=== PATIENT | female | born 1940 | race Caucasian/White ===

== ENCOUNTER 2018-02-16 13:35 | Emergency (ER) | payer MEDICARE, SELFPAY ==
[2018-02-16 13:39] VITALS: BP 159/83; PULSE 104; RESP 16; TEMP 38.3; O2SAT 100; BMI 27.2
--- NOTE | 2018-02-16 14:13 | ED_ITS ---
HPI - GI Bleed <MAUDE Sequeira - Last Filed: 02/16/18 22:05> General Chief complaint: GI Bleed Stated complaint: COUGHING UP BLOOD Time Seen by Provider: 02/16/18 14:12 Source: patient Mode of arrival: ambulatory Limitations: no limitations History of Present Illness HPI Narrative: 77-year-old female with history of breast cancer that is currently undergoing chemo treatments here for fever for the past 4-5 days along with cough. She also reports that she has been having hemoptysis during the same timeframe. She denies any shortness of breath. She does report having anterior chest pain with the cough. Positive p.o. intake. She reports that she recently had a aortic valve replacement at the beginning of this month. She also reports she has a history of sarcoidosis. She denies any abdominal pain. Positive p.o. intake. She denies any shortness of breath. Related Data Home Medications Medication Instructions Recorded Confirmed metoprolol tartrate 25 mg PO TID #0 05/19/16 02/16/18 Disabled [address]ing Permit 1 ea MISCELLANEOUS DIRECTED 02/16/18 02/16/18 anastrozole 1 tab PO DAILY 02/16/18 02/16/18 furosemide [Lasix] 40 mg PO QDAY 02/16/18 02/16/18 levothyroxine 1 tab PO DAILY 02/16/18 02/16/18 losartan 12.5 mg PO DAILY 02/16/18 02/16/18 potassium chloride 1 cap PO DAILY 02/16/18 02/16/18 rivaroxaban [Xarelto] 1 tab PO DAILY 02/16/18 02/16/18 trazodone 1 tab PO BEDTIME PRN 02/16/18 02/16/18 Previous Rx's Medication Instructions Recorded capecitabine 1,500 mg PO BID #84 tab 12/10/16 hydrocodone-acetaminophen [Vicodin] 1 tab PO Q4HP PRN #60 tab 12/10/16 codeine-guaifenesin [Virtussin AC] 10 ml PO Q4-6H PRN #118 ml 02/16/18 levofloxacin [Levaquin] 750 mg PO DAILY #7 tab 02/16/18 Allergies Allergy/AdvReac Type Severity Reaction Status Date / Time acetaminophen [From VICODIN] Allergy Intermediate ITCHING Verified 02/16/18 13: 39 hydrocodone [From VICODIN] Allergy Intermediate ITCHING Verified 02/16/18 13:39 oxycodone [OXYCODONE] Allergy Intermediate ITCHING Verified 02/16/18 13:39 latex Allergy Mild BLISTER Verified 02/16/18 13:39 STEROIDS Allergy Severe GENERAL Uncoded 08/05/17 11:59 BODY SWELLING Review of Systems <MAUDE Sequeira - Last Filed: 02/16/18 22:05> Constitutional Denies chills, Reports fever(s), Denies lethargy and Denies weakness Eyes Denies change in vision, Denies eye discharge, Denies irritation and Denies loss of vision ENT Ears, Nose, Mouth, and Throat: Denies change in voice, Denies neck pain, Denies sore throat and Denies throat swelling Cardiovascular Denies chest pain, Denies irregular heart rhythm, Denies lightheadedness, Denies palpitations and Denies orthopnea Respiratory Reports cough and Denies wheezing Comments: Hemoptysis Gastrointestinal Gastrointestinal: Denies abdominal pain, Denies change in bowel habits, Denies diarrhea, Denies nausea and Denies vomiting Genitourinary Denies hematuria, Denies flank pain, Denies urinary incontinence and Denies urinary urgency Musculoskeletal Denies neck pain Integumentary/Breasts Denies pruritus, Denies erythema, Denies rash and Denies wounds Neurologic Denies confusion, Denies loss of vision and Denies weakness Psychiatric Denies anxiety, Denies confusion, Denies depression, Denies homicidal ideation and Denies suicidal ideation Endocrine Denies palpitations Allergic/Immunologic Denies urticaria, Denies throat swelling and Denies wheezing Exam <MAUDE Sequeira - Last Filed: 02/16/18 22:05> Initial Vital Signs Initial Vital Signs: Vital Signs Temperature 101.0 F H 02/16/18 13:39 Pulse Rate 104 H 02/16/18 13:39 Respiratory Rate 16 02/16/18 13:39 Blood Pressure 159/83 H 02/16/18 13:39 Pulse Oximetry 100 02/16/18 13:39 Const General: cooperative and well developed Nutritional Appearance: well nourished Orientation: alert, awake, oriented x3 and not confused HENMT Mouth: oral mucosae normal and moist mucous membranes Eyes General: appearance normal, both eyes and all related structures Eyelids: eyelids normal Conjunctivae: conjunctivae normal Sclera: sclerae normal Pupils: PERRL EOM: EOM intact bilaterally Neck Neck: normal visual inspection, trachea midline, No lymphadenopathy, No midline deformity and No JVD Lymphatic: No lymphedema Chest Chest: normal inspection of the chest Resp Effort & Inspection: normal respiratory effort, able to speak in complete sentences, no respiratory distress and no use of accessory muscles Auscultation: clear to auscultation bilaterally, no rales, no rhonchi and no wheezes Cardio Rate: regular rate Rhythm: regular rhythm Heart Sounds: no click, no gallops, no murmurs and no rubs Pulses: normal peripheral pulses GI Inspection: non-distended Palpation: soft, no hepatosplenomegaly, No guarding, No pulsatile mass and No tender Auscultation: normal bowel sounds Skin General: no rashes or lesions noted Neuro Cognition: normal cognition Speech: speech normal Gait: normal gait Motor: muscle tone normal throughout <Sanna Fish MD - Last Filed: 02/25/18 14:01> Initial Vital Signs Initial Vital Signs: Vital Signs Temperature 101.0 F H 02/16/18 13:39 Pulse Rate 104 H 02/16/18 13:39 Respiratory Rate 16 02/16/18 13:39 Blood Pressure 159/83 H 02/16/18 13:39 Pulse Oximetry 100 02/16/18 13:39 Course <MAUDE Sequeira - Last Filed: 02/16/18 22:05> Orders Ordered: Discontinued Medications Sodium Chloride (Normal Saline 0.9%) 1,000 mls @ 150 mls/hr IV CONT ELEONORA Last Infusion: 02/16/18 17:43 Dose: 0 mls/hr Admin: 02/16/18 16:32 Dose: 150 mls/hr Vital Signs - 8 hr 02/16/18 15:20 Pulse Rate 69 Respiratory Rate 18 Blood Pressure [Left Wrist] 128/69 Pulse Oximetry 100 <Sanna Fish MD - Last Filed: 02/25/18 14:01> Orders Ordered: Discontinued Medications Sodium Chloride (Normal Saline 0.9%) 1,000 mls @ 150 mls/hr IV CONT ELEONORA Last Infusion: 02/16/18 17:43 Dose: 0 mls/hr Admin: 02/16/18 16:32 Dose: 150 mls/hr Vital Signs - 8 hr 02/16/18 15:20 Pulse Rate 69 Respiratory Rate 18 Blood Pressure [Left Wrist] 128/69 Pulse Oximetry 100 [facility] - GI Bleed <MAUDE Sequeira - Last Filed: 02/16/18 22:05> Lab Data Result diagrams: 02/16/18 15:30 02/16/18 15:30 Lab Results 02/16/18 02/16/18 02/16/18 Range/Units 15:30 15:30 15:30 WBC 5.7 (4.5-11.0) X10^3/uL RBC 3.79 L (4.0-5.2) X10^6/uL Hgb 11.4 L (12.0-16.0) g/dL Hct 33.7 L (36-46) % MCV 88.9 (80-100) fL MCH 30.1 (26-34) PG MCHC 33.9 (30-36) % RDW 14.8 (11.6-14.8) % Plt Count 117 L (150-400) X10^3/uL Neut % (Auto) 62.3 (50-75) % Lymph % (Auto) 10.5 L (25-40) % [place] % (Auto) 25.2 H (3-14) % Eos % (Auto) 1.2 L (2-4) % Baso % (Auto) 0.8 (0-2) % Neut # (Auto) 3600 (5072-9833) /uL Sodium 136 L (137-145) mmol/L Potassium 3.3 L (3.4-5.1) mmol/L Chloride 96 L (98-107) mmol/L Carbon Dioxide 30 (22-32) mmol/L BUN 12 (7-17) mg/dL Creatinine 0.80 (0.52-1.04) mg/dL Estimated GFR > 60.0 (>60) mL/min BUN/Creatinine Ratio 15.0 (6-22) Glucose 103 (80-110) mg/dL Lactate (0.7-2.1) mmol/L Calcium 9.1 (8.4-10.2) mg/dL Total Bilirubin 1.7 H (0.2-1.3) mg/dL AST 56 H (14-36) IU/L ALT 33 (9-52) IU/L Alkaline Phosphatase 118 (38-126) U/L Total Creatine Kinase 54 (30-135) U/L CK-MB (CK-2) TNP CK-MB (CK-2) Rel Index TNP Troponin I 0.016 (0.01-0.034) ng/mL Total Protein 6.9 (6.3-8.2) g/dL Albumin 3.9 (3.5-5.0) g/dL Globulin 3.0 (1.7-4.1) g/dL Albumin/Globulin Ratio 1.3 (1.0-2.8) Procalcitonin < 0.05 (<0.5) ng/mL 02/16/18 Range/Units 15:30 WBC (4.5-11.0) X10^3/uL RBC (4.0-5.2) X10^6/uL Hgb (12.0-16.0) g/dL Hct (36-46) % MCV (80-100) fL MCH (26-34) PG MCHC (30-36) % RDW (11.6-14.8) % Plt Count (150-400) X10^3/uL Neut % (Auto) (50-75) % Lymph % (Auto) (25-40) % [place] % (Auto) (3-14) % Eos % (Auto) (2-4) % Baso % (Auto) (0-2) % Neut # (Auto) (3603-5007) /uL Sodium (137-145) mmol/L Potassium (3.4-5.1) mmol/L Chloride (98-107) mmol/L Carbon Dioxide (22-32) mmol/L BUN (7-17) mg/dL Creatinine (0.52-1.04) mg/dL Estimated GFR (>60) mL/min BUN/Creatinine Ratio (6-22) Glucose (80-110) mg/dL Lactate 2.2 H (0.7-2.1) mmol/L Calcium (8.4-10.2) mg/dL Total Bilirubin (0.2-1.3) mg/dL AST (14-36) IU/L ALT (9-52) IU/L Alkaline Phosphatase (38-126) U/L Total Creatine Kinase (30-135) U/L CK-MB (CK-2) CK-MB (CK-2) Rel Index Troponin I (0.01-0.034) ng/mL Total Protein (6.3-8.2) g/dL Albumin (3.5-5.0) g/dL Globulin (1.7-4.1) g/dL Albumin/Globulin Ratio (1.0-2.8) Procalcitonin (<0.5) ng/mL Urine Dip Bedside Urine Glucose Negative Bedside Urine Bilirubin - Negative Bedside Urine Ketone - Negative Urine Specific [place] 1.015 Bedside Urine Occult Blood - Negative Bedside Urine pH 6.0 Bedside Urine Protein - Negative Bedside Urine Urobilinogen - Negative Bedside Urine Nitrite - Negative Bedside Urine Leukocytes - Negative Esterase Imaging Data CT scan - chest: Radiologist's impression: [address] [address] [address] Scan Report Signed Patient: Alvina Becerril [facility]#: [id number] : 3Acct:[id number] Age/Sex: 77 / FDate of Service: 02/16/18 Loc: ED Accession Number: [id number] Procedure: CT chest w con Ordering Provider: Todd Villa PROCEDURE: CT CHEST W CON INDICATIONS: Cough with fever and hemoptysis TECHNIQUE: After the administration of intravenous contrast, 5 mm thick sections acquired from the pulmonary apices to the posterior costophrenic angles. 7 mm thick coronal and sagittal MIP reformats were acquired. For radiation dose reduction, the following was used: automated exposure control, adjustment of mA and/or kV according to patient size. COMPARISON: [place], [place], PET/CT SKULL BASE TO MID THIGH, 12/19/2016, 10: 51. [facility], CHEST 2 VIEW, 04/19/2017, 7:03. FINDINGS: Image quality: Excellent. Lungs and pleura: No acute air space opacities superiorly but there appears to be mild alveolar scarring at the posterior lung bases bilaterally greater on the left than the right, mild in overall severity given presence on prior PET CT scanning in November of 2016. No pleural effusions or pneumothorax. Central and peripheral airways are patent and normal in caliber. Mediastinum: Heart size is normal. No pericardial effusion. No mediastinal or hilar adenopathy by size criteria. Thoracic aorta and central pulmonary arteries are normal in size. Esophagus is normal in caliber. No hiatal hernia. Aortic root stent is in place at the aortic origin. Bones and chest wall: No suspicious bony lesions. No vertebral body compression fractures. No axillary or supraclavicular adenopathy by size criteria. Thyroid gland appears normal where well visualized. Abdomen: Visualized upper abdominal solid organs appear normal. Upper abdominal bowel loops are normal in caliber. IMPRESSION: With reference to prior CT scanning obtained during PET/CT 12/19/16 there is a pattern of stranding at the posterior lung bases bilaterally similar if not equivalent to that the currently present and for this reason this is considered most likely scarring rather than acute pneumonia. A pulmonary mass or endobronchial mass is not seen. Source of reported hemoptysis is not found. Dictated by: Merrick Medina M.D. on 02/16/2018. At 17:15 Approved by: Merrick Medina M.D. on 02/16/2018 at 17:18 [facility] Narrative Medical decision making narrative: CBC was obtained with white count at 5.7 and a platelets at 117 otherwise is unremarkable. Chem panel shows mild hypokalemia and hyponatremia at 3.3 and and 136. total bili was slightly elevated 1.7. Otherwise chemistry panel was unremarkable. Procalcitonin was negative. Lactate was slightly elevated at 2.2. EKG shows sinus rhythm with no ST elevation or depression. No ectopy. Cardiac enzymes were obtained were negative. 1 set of blood cultures was obtained and is pending. Was unable to obtain 2nd of blood set as patient did not want to be stuck multiple times. Discussed case with Oncology Dr. Medina who recommends observation. Currently there are no beds available at this facility discussed transferring patient down to [place] for observation. Patient stated that she would rather go home tonight as she has dogs at home and will follow up with Oncology tomorrow or the next day. Further discussed this with Dr. Medina who recommends putting patient on Levaquin in the meantime and have her hold the Xarelto until follow-up is obtained. Patient is agreeable to this plan. For any worsening symptoms call 911 or return to the emergency room. <Sanna Fish MD - Last Filed: 02/25/18 14:01> Lab Data Lab Results 02/16/18 02/16/18 02/16/18 Range/Units 15:30 15:30 15:30 WBC 5.7 (4.5-11.0) X10^3/uL RBC 3.79 L (4.0-5.2) X10^6/uL Hgb 11.4 L (12.0-16.0) g/dL Hct 33.7 L (36-46) % MCV 88.9 (80-100) fL MCH 30.1 (26-34) PG MCHC 33.9 (30-36) % RDW 14.8 (11.6-14.8) % Plt Count 117 L (150-400) X10^3/uL Neut % (Auto) 62.3 (50-75) % Lymph % (Auto) 10.5 L (25-40) % [place] % (Auto) 25.2 H (3-14) % Eos % (Auto) 1.2 L (2-4) % Baso % (Auto) 0.8 (0-2) % Neut # (Auto) 3600 (6864-6376) /uL Sodium 136 L (137-145) mmol/L Potassium 3.3 L (3.4-5.1) mmol/L Chloride 96 L (98-107) mmol/L Carbon Dioxide 30 (22-32) mmol/L BUN 12 (7-17) mg/dL Creatinine 0.80 (0.52-1.04) mg/dL Estimated GFR > 60.0 (>60) mL/min BUN/Creatinine Ratio 15.0 (6-22) Glucose 103 (80-110) mg/dL Lactate (0.7-2.1) mmol/L Calcium 9.1 (8.4-10.2) mg/dL Total Bilirubin 1.7 H (0.2-1.3) mg/dL AST 56 H (14-36) IU/L ALT 33 (9-52) IU/L Alkaline Phosphatase 118 (38-126) U/L Total Creatine Kinase 54 (30-135) U/L CK-MB (CK-2) TNP CK-MB (CK-2) Rel Index TNP Troponin I 0.016 (0.01-0.034) ng/mL Total Protein 6.9 (6.3-8.2) g/dL Albumin 3.9 (3.5-5.0) g/dL Globulin 3.0 (1.7-4.1) g/dL Albumin/Globulin Ratio 1.3 (1.0-2.8) Procalcitonin < 0.05 (<0.5) ng/mL 02/16/18 Range/Units 15:30 WBC (4.5-11.0) X10^3/uL RBC (4.0-5.2) X10^6/uL Hgb (12.0-16.0) g/dL Hct (36-46) % MCV (80-100) fL MCH (26-34) PG MCHC (30-36) % RDW (11.6-14.8) % Plt Count (150-400) X10^3/uL Neut % (Auto) (50-75) % Lymph % (Auto) (25-40) % [place] % (Auto) (3-14) % Eos % (Auto) (2-4) % Baso % (Auto) (0-2) % Neut # (Auto) (0452-6741) /uL Sodium (137-145) mmol/L Potassium (3.4-5.1) mmol/L Chloride (98-107) mmol/L Carbon Dioxide (22-32) mmol/L BUN (7-17) mg/dL Creatinine (0.52-1.04) mg/dL Estimated GFR (>60) mL/min BUN/Creatinine Ratio (6-22) Glucose (80-110) mg/dL Lactate 2.2 H (0.7-2.1) mmol/L Calcium (8.4-10.2) mg/dL Total Bilirubin (0.2-1.3) mg/dL AST (14-36) IU/L ALT (9-52) IU/L Alkaline Phosphatase (38-126) U/L Total Creatine Kinase (30-135) U/L CK-MB (CK-2) CK-MB (CK-2) Rel Index Troponin I (0.01-0.034) ng/mL Total Protein (6.3-8.2) g/dL Albumin (3.5-5.0) g/dL Globulin (1.7-4.1) g/dL Albumin/Globulin Ratio (1.0-2.8) Procalcitonin (<0.5) ng/mL Urine Dip Bedside Urine Glucose Negative Bedside Urine Bilirubin - Negative Bedside Urine Ketone - Negative Urine Specific [place] 1.015 Bedside Urine Occult Blood - Negative Bedside Urine pH 6.0 Bedside Urine Protein - Negative Bedside Urine Urobilinogen - Negative Bedside Urine Nitrite - Negative Bedside Urine Leukocytes - Negative Esterase Discharge Plan Departure Patient Disposition: Home Clinical Impression: Cough with hemoptysis Discharge Date/Time: 02/16/18 18:25 Interventions: ED Discharge Assessment Last Done: 02/16/18 18:21 Instructions: DI for Hemoptysis Activity Restrictions/Additional Instructions: Laboratory results were unremarkable today. Chest CT was obtained and was negative for signs of infection. EKG and cardiac enzymes were obtained were negative. Discussed case with Oncology who recommended you be placed on antibiotics you have been placed on Levaquin use as directed. Oncology also recommended to hold on Xarelto until instructed to continue. Follow up with Oncology here in the next day or 2 for re-evaluation. For any worsening symptoms call 911 or return emergency room. Prescriptions: New codeine-guaifenesin [Virtussin AC] 10-100 mg/5 mL liquid 10 ml PO Q4-6H PRN (Reason: cough) Qty: 118 RF: 0 levofloxacin [Levaquin] 750 mg tablet 750 mg PO DAILY Qty: 7 RF: 0 No Action metoprolol tartrate 25 MG tablet 25 mg PO TID Qty: 0 RF: 0 hydrocodone-acetaminophen [Vicodin] 5 MG/300 MG tablet 1 tab PO Q4HP PRNQty: 60 RF: 0 capecitabine 500 MG tablet 1,500 mg PO BID Qty: 84 RF: 2 anastrozole 1 mg tablet 1 tab PO DAILY RF: 0 potassium chloride 10 mEq capsule, extended release 1 cap PO DAILY RF: 0 trazodone 50 mg tablet 1 tab PO BEDTIME PRN (Reason: Sleep) RF: 0 levothyroxine 88 mcg tablet 1 tab PO DAILY RF: 0 losartan 25 mg tablet 12.5 mg PO DAILY RF: 0 rivaroxaban [Xarelto] 20 mg tablet 1 tab PO DAILY RF: 0 furosemide [Lasix] 20 MG tablet 40 mg PO QDAY RF: 0 Disabled Parking Permit 1 ea miscellaneous DIRECTED RF: 0 Referrals: Chace Rebolledo MD [Primary Care Provider] -
--- NOTE | 2018-02-16 15:03 | DI.CT.S_ITS ---
PROCEDURE: CT CHEST W CON INDICATIONS: Cough with fever and hemoptysis TECHNIQUE: After the administration of intravenous contrast, 5 mm thick sections acquired from the pulmonary apices to the posterior costophrenic angles. 7 mm thick coronal and sagittal MIP reformats were acquired. For radiation dose reduction, the following was used: automated exposure control, adjustment of mA and/or kV according to patient size. COMPARISON: [place], [place], PET/CT SKULL BASE TO MID THIGH, 12/19/2016, 10:51. [facility], , CHEST 2 VIEW, 04/19/2017, 7:03. FINDINGS: Image quality: Excellent. Lungs and pleura: No acute air space opacities superiorly but there appears to be mild alveolar scarring at the posterior lung bases bilaterally greater on the left than the right, mild in overall severity given presence on prior PET CT scanning in November of 2016. No pleural effusions or pneumothorax. Central and peripheral airways are patent and normal in caliber. Mediastinum: Heart size is normal. No pericardial effusion. No mediastinal or hilar adenopathy by size criteria. Thoracic aorta and central pulmonary arteries are normal in size. Esophagus is normal in caliber. No hiatal hernia. Aortic root stent is in place at the aortic origin. Bones and chest wall: No suspicious bony lesions. No vertebral body compression fractures. No axillary or supraclavicular adenopathy by size criteria. Thyroid gland appears normal where well visualized. Abdomen: Visualized upper abdominal solid organs appear normal. Upper abdominal bowel loops are normal in caliber. IMPRESSION: With reference to prior CT scanning obtained during PET/CT 12/19/16 there is a pattern of stranding at the posterior lung bases bilaterally similar if not equivalent to that the currently present and for this reason this is considered most likely scarring rather than acute pneumonia. A pulmonary mass or endobronchial mass is not seen. Source of reported hemoptysis is not found. Dictated by: Merrick Medina M.D. on 02/16/2018. At 17:15 Approved by: Merrick Medina M.D. on 02/16/2018 at 17:18
[2018-02-16 15:20] VITALS: BP 128/69; PULSE 69; RESP 18; O2SAT 100
[2018-02-16 15:46] LABS: Add Manual Diff / Slide Review NO; Basophils Percent Auto 0.8 % (0-2); Eosinophils Percent Auto 1.2 % (2-4); Hematocrit 33.7 % (36-46); Hemoglobin 11.4 g/dL (12.0-16.0); Lymphocytes Percent Auto 10.5 % (25-40); Mean Corpuscular HGB Conc 33.9 % (30-36); Mean Corpuscular Hemoglobin 30.1 PG (26-34); Mean Corpuscular Volume 88.9 fL (80-100); Monocytes Percent Auto 25.2 % (3-14); Neutrophils Absolute Auto 3600 /uL (3000-5900); Neutrophils Percent Auto 62.3 % (50-75); Platelet Count 117 X10^3/uL (150-400); Red Blood Cell Count 3.79 X10^6/uL (4.0-5.2); Red Cell Distribution Width 14.8 % (11.6-14.8); White Blood Cell Count 5.7 X10^3/uL (4.5-11.0)
[2018-02-16 16:00] LABS: Lactate (Lactic Acid) 2.2 mmol/L (0.7-2.1)
[2018-02-16 16:01] LABS: Alanine Aminotransferase 33 IU/L (9-52); Albumin 3.9 g/dL (3.5-5.0); Albumin Globulin Ratio 1.3 (1.0-2.8); Alkaline Phosphatase 118 U/L (38-126); Aspartate Aminotransferase 56 IU/L (14-36); Bilirubin Total 1.7 mg/dL (0.2-1.3); Blood Urea Nitrogen 12 mg/dL (7-17); Calcium 9.1 mg/dL (8.4-10.2); Carbon Dioxide 30 mmol/L (22-32); Chloride 96 mmol/L (98-107); Creatine Kinase 54 U/L (30-135); Estimated Glomerular Filt Rate > 60.0 mL/min (>60); Glucose 103 mg/dL (80-110); HEMOLYSIS < 15 (0-50); Potassium 3.3 mmol/L (3.4-5.1); Sodium 136 mmol/L (137-145); Total Protein 6.9 g/dL (6.3-8.2)
[2018-02-16 16:13] LABS: Troponin I 0.016 ng/mL (0.01-0.034)
[2018-02-16 16:14] LABS: Procalcitonin < 0.05 ng/mL (<0.5)
[2018-02-16] MEDS: SODIUM CHLORIDE 0.9% 1,000 ML 150 ML IV (16:32)
[2018-02-16 19:40] LABS: Reflexed Lactate in 2 Hours Y
== END 2018-02-16 18:25 | disposition home or self-care (01) ==
PROVIDERS: Emergency Provider Nurse Practitioner Family; PCP Internal Medicine
DX: R04.2 Hemoptysis (principal)
CPT/HCPCS: 36591; 71260; 80053; 81003; 82550; 83605; 84145; 84484; 85025; 87040; 93005; 93010; 96360; 99283; 99285; Q9967

== ENCOUNTER 2018-05-17 11:30 | Outpatient (RCR) | payer MEDICARE, SELFPAY | END 2018-05-17 15:10 | LOC: CAR 11:30 | PROVIDERS: Family Provider Internal Medicine; PCP Internal Medicine; Visit Provider Internal Medicine | DX: Z95.2 Presence of prosthetic heart valve (principal) | CPT/HCPCS: 93798 ==

== ENCOUNTER 2018-10-24 12:23 | Emergency (ER) | payer MEDICARE, SELFPAY ==
[2018-10-24 12:44] VITALS: BP 92/75; PULSE 112; RESP 22; TEMP 37; O2SAT 97; BMI 25.8
--- NOTE | 2018-10-24 12:51 | DI.RAD.S_ITS ---
PROCEDURE: XR CHEST 1V INDICATIONS: fever , history of cancer TECHNIQUE: One view of the chest was acquired. COMPARISON: [facility], , CHEST 2 VIEW, 04/19/2017, 7:03. FINDINGS: Surgical changes and devices: There is a right-sided Port-A-Cath central line identified with the tip overlying the mid to lower superior vena cava. The cardiac valvular stent is evident. Clips are seen within the left breast, suggesting prior surgery. Previous rotator cuff repair is also evident with tendon anchors overlying the humeral head. There are postoperative changes of the lower cervical spine. Lungs and pleura: No areas of linear increased density along the mid aspect of the lateral right lung is evident. There also are increased areas of density identified within the retrocardiac region on the left. Partial obscuration of the diaphragm is present. There may be blunting of the costophrenic angles. No pneumothorax is evident. Mediastinum: Mediastinal contours appear normal. Heart size is borderline enlarged. Bones and chest wall: No suspicious bony lesions. Overlying soft tissues appear unremarkable. IMPRESSION: Linear areas of increased attenuation within the lung bases is most suggestive of atelectasis. However, superimposed pneumonia cannot be excluded. Dictated by: Duane Casper M.D. on 10/24/2018 at 12:53 Approved by: Duane Casper M.D. on 10/24/2018 at 12:55
--- NOTE | 2018-10-24 12:56 | ED_ITS ---
HPI - Extremity Injury (Lower) General Chief Complaint: Extremity Injury, Lower Stated Complaint: right leg injury x2 days ago/on chemo Time Seen by Provider: 10/24/18 12:39 Source: patient Mode of arrival: ambulatory Limitations: no limitations History of Present Illness HPI Narrative: Patient is a 78-year-old female with history of metastatic breast cancer currently on chemotherapy her last chemotherapy was 3 weeks ago. She has not been tolerating this drug very well. She presents today with rigors and weakness. No fever however she did take Advil at 9:30 a.m. this morning. She hurt her right leg 2 or 3 days ago and now seems to be more erythematous. She is on Xarelto so there is quite a contusion around there but it does appear to be erythematous. She has a cough with has a cough. It does not seem to be any worse. She said she was feeling okay yesterday. She has no painful or frequent urination MD complaint: leg injury Related Data Home Medications Medication Instructions Recorded Confirmed metoprolol tartrate 25 mg PO TID #0 05/19/16 02/16/[address]ing Permit 1 ea MISCELLANEOUS DIRECTED 02/16/18 02/16/18 anastrozole 1 tab PO DAILY 02/16/18 02/16/18 furosemide [Lasix] 40 mg PO QDAY 02/16/18 02/16/18 levothyroxine 1 tab PO DAILY 02/16/18 02/16/18 losartan 12.5 mg PO DAILY 02/16/18 02/16/18 potassium chloride 1 cap PO DAILY 02/16/18 02/16/18 rivaroxaban [Xarelto] 1 tab PO DAILY 02/16/18 02/16/18 trazodone 1 tab PO BEDTIME PRN 02/16/18 02/16/18 Previous Rx's Medication Instructions Recorded capecitabine 1,500 mg PO BID #84 tab 12/10/16 hydrocodone-acetaminophen [Vicodin] 1 tab PO Q4HP PRN #60 tab 12/10/16 codeine-guaifenesin [Virtussin AC] 10 ml PO Q4-6H PRN #118 ml 02/16/18 levofloxacin [Levaquin] 750 mg PO DAILY #7 tab 02/16/18 Allergies Allergy/AdvReac Type Severity Reaction Status Date / Time acetaminophen [From VICODIN] Allergy Intermediate ITCHING Verified 02/16/18 13:39 hydrocodone [From VICODIN] Allergy Intermediate ITCHING Verified 02/16/18 13:39 oxycodone [OXYCODONE] Allergy Intermediate ITCHING Verified 02/16/18 13:39 latex Allergy Mild BLISTER Verified 02/16/18 13:39 STEROIDS Allergy Severe GENERAL Uncoded 08/05/17 11:59 BODY SWELLING Review of Systems Review of Systems ROS Unobtainable: All systems reviewed & are unremarkable except as noted in HPI and below Constitutional Reports body ache(s) and Reports chills Eyes Denies change in vision, Denies eye discharge, Denies irritation and Denies loss of vision ENT Ears, Nose, Mouth, and Throat: Denies change in voice, Denies neck pain and Denies sore throat Cardiovascular Denies chest pain, Denies irregular heart rhythm, Denies lightheadedness, Denies palpitations, Denies dyspnea, Denies dyspnea on exertion and Denies orthopnea Respiratory Reports cough (chronic), Denies dyspnea, Denies dyspnea on exertion and Denies wheezing Gastrointestinal Gastrointestinal: Denies abdominal pain, Denies change in bowel habits, Denies diarrhea, Denies nausea and Denies vomiting Genitourinary Denies hematuria, Denies flank pain, Denies urinary incontinence and Denies urinary urgency Musculoskeletal Denies neck pain Integumentary/Breasts Denies pruritus, Denies erythema, Denies rash and Denies wounds Neurologic Denies loss of vision Endocrine Denies palpitations Allergic/Immunologic Denies wheezing [facility] Medical History (Updated 10/24/18 @ 16:01 by Zakia Pennington DO) Atrial fibrillation (Acute) Metastatic breast cancer (Acute) Surgical History (Updated 10/24/18 @ 13:12 by Zakia Pennington DO) 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 HEENT: Head atraumatic,EOMI, pupils reactive CARDIOVASCULAR: Regular rate and rhythm without murmurs, rubs or gallops. Artificial valve her RESPIRATORY: Breath sounds equal bilaterally, no wheezes rales or rhonchi. ABDOMEN: Soft, nontender. Normoactive bowel sounds all 4 quadrants. No guarding or rebound. : No CVA tenderness EXTREMITIES: Normal range of motion, no clubbing or edema. Neurovascularly intact NEUROLOGICAL: Alert and oriented x4.Normal gait and speech. Cranial nerves II through XII grossly intact. SKIN: Right lower leg large contusion noted minimal erythema surrounding Course Orders Ordered: ED Orders 10/24/18 12:51 XR chest 1V Stat 10/24/18 13:30 Blood Culture Stat Complete Blood Count AUTO DIFF Stat Comprehensive Metabolic Panel Stat Lactate (Lactic Acid) Stat Partial Thromboplastin Time Stat Procalcitonin Stat Prothrombin Time INR Stat Discontinued Medications Sodium Chloride (Normal Saline 0.9%) 1,000 mls @ 125 mls/hr IV CONT ELEONORA Last Infusion: 10/24/18 15:59 Dose: 0 mls/hr Infusion: 10/24/18 15:27 Dose: 999 mls/hr Admin: 10/24/18 13:44 Dose: 125 mls/hr Vancomycin HCl (Vancomycin) 1,000 mg in 200 mls @ 200 mls/hr IV NOW ONE Stop: 10/24/18 15:44 Last Admin: 10/24/18 15:59 Dose: Not Given Piperacillin/Tazobactam/Dextrose (Zosyn) 3.375 gm in 50 mls @ 100 mls/hr IV NOW ONE Stop: 10/24/18 15:14 Last Admin: 10/24/18 15:59 Dose: Not Given Vital Signs - 8 hr 10/24/18 12:44 10/24/18 13:30 10/24/18 15:57 Temperature 98.6 F Pulse Rate 112 H 71 68 Respiratory Rate 22 25 H 16 Blood Pressure 92/75 Blood Pressure [Left Arm] 99/50 L 111/44 L Pulse Oximetry 97 97 98 10/24/18 16:22 Temperature 98.8 F Pulse Rate 71 Respiratory Rate 20 Blood Pressure 90/35 L Blood Pressure [Left Arm] Pulse Oximetry 96 MDM - Extremity Injury (Lower) Lab Data Attestation: I reviewed the patient's lab results. Result diagrams: 10/24/18 13:30 10/24/18 13:30 Lab Results 10/24/18 10/24/18 10/24/18 Range/Units 13:30 13:30 13:30 WBC 16.4 H (4.5-11.0) X10^3/uL RBC 3.30 L (4.0-5.2) X10^6/uL Hgb 10.6 L (12.0-16.0) g/dL Hct 31.2 L (36-46) % MCV 94.7 (80-100) fL MCH 32.2 (26-34) PG MCHC 34.0 (30-36) % RDW 20.5 H (11.6-14.8) % Plt Count 111 L (150-400) X10^3/uL Neut % (Auto) 84.8 H (50-75) % Lymph % (Auto) 4.1 L (25-40) % [place] % (Auto) 9.8 (3-14) % Eos % (Auto) 0.0 L (2-4) % Baso % (Auto) 1.3 (0-2) % Neut # (Auto) 78750 H (9424-9424) /uL Lymph # (Auto) 700 L (7506-7224) /uL [place] # (Auto) 1600 H (0-900) /uL Eos # (Auto) 0 (0-450) /uL Baso # (Auto) 200 H (0-100) /uL RBC Morphology See below Anisocytosis 1+ H PT 32.6 H (10.1-12.7) SECONDS INR 2.8 H (0.9-1.3) APTT 43 H D (26.4-36.2) SECONDS Sodium (137-145) mmol/L Potassium (3.4-5.1) mmol/L Chloride (98-107) mmol/L Carbon Dioxide (22-32) mmol/L BUN (7-17) mg/dL Creatinine (0.52-1.04) mg/dL Estimated GFR (>60) mL/min BUN/Creatinine Ratio (6-22) Glucose (80-110) mg/dL Lactate (0.7-2.1) mmol/L Calcium (8.4-10.2) mg/dL Total Bilirubin (0.2-1.3) mg/dL AST (14-36) IU/L ALT (9-52) IU/L Alkaline Phosphatase (38-126) U/L Total Protein (6.3-8.2) g/dL Albumin (3.5-5.0) g/dL Globulin (1.7-4.1) g/dL Albumin/Globulin Ratio (1.0-2.8) Procalcitonin < 0.05 (<0.5) ng/mL 10/24/18 10/24/18 Range/Units 13:30 13:30 WBC (4.5-11.0) X10^3/uL RBC (4.0-5.2) X10^6/uL Hgb (12.0-16.0) g/dL Hct (36-46) % MCV (80-100) fL MCH (26-34) PG MCHC (30-36) % RDW (11.6-14.8) % Plt Count (150-400) X10^3/uL Neut % (Auto) (50-75) % Lymph % (Auto) (25-40) % [place] % (Auto) (3-14) % Eos % (Auto) (2-4) % Baso % (Auto) (0-2) % Neut # (Auto) (3585-1179) /uL Lymph # (Auto) (9903-8663) /uL [place] # (Auto) (0-900) /uL Eos # (Auto) (0-450) /uL Baso # (Auto) (0-100) /uL RBC Morphology Anisocytosis PT (10.1-12.7) SECONDS INR (0.9-1.3) APTT (26.4-36.2) SECONDS Sodium 136 L (137-145) mmol/L Potassium 3.8 (3.4-5.1) mmol/L Chloride 97 L (98-107) mmol/L Carbon Dioxide 29 (22-32) mmol/L BUN 17 (7-17) mg/dL Creatinine 1.00 (0.52-1.04) mg/dL Estimated GFR 53.9 L (>60) mL/min BUN/Creatinine Ratio 17.0 (6-22) Glucose 106 (80-110) mg/dL Lactate 1.7 (0.7-2.1) mmol/L Calcium 8.8 (8.4-10.2) mg/dL Total Bilirubin 2.6 H (0.2-1.3) mg/dL AST 38 H (14-36) IU/L ALT 14 (9-52) IU/L Alkaline Phosphatase 143 H (38-126) U/L Total Protein 6.3 (6.3-8.2) g/dL Albumin 3.3 L (3.5-5.0) g/dL Globulin 3.0 (1.7-4.1) g/dL Albumin/Globulin Ratio 1.1 (1.0-2.8) Procalcitonin (<0.5) ng/mL Urine Dip Bedside Urine Glucose Negative Bedside Urine Bilirubin - Negative Bedside Urine Ketone - Negative Urine Specific [place] 1.020 Bedside Urine Occult Blood - Negative Bedside Urine pH 6.0 Bedside Urine Protein - Negative Bedside Urine Urobilinogen - Negative Bedside Urine Nitrite - Negative Bedside Urine Leukocytes - Negative Esterase MDM Narrative Medical decision making narrative: Patient's blood pressure 80 is all lower than normal. However patient and son state that blood pressure is really quite up and down lately. She actually has never had a fever in the emergency department she took Advil at 9:30 a.m. she had shakes and chills when she arrived but never developed sweats and remained afebrile. She does have leukocytosis but it has come down from 28,000 eight thousand and she did get a Neupogen shot 2 weeks ago. She has no signs or symptoms of pneumonia x-ray is negative. Urine is negative. She has minimal erythema on this right leg. She does have home oral Levaquin which she typically takes every other day however since she developed this contusion on her right leg she started taking it every day she she is due again tonight. She thinks that it is helping. She overall is not septic no lactic acid I think the leukocytosis is actually from the Neupogen shot not from infection. She has been afebrile. She certainly is not neutropenic. Blood pressure improved with light fluid. She stood up and went to the bathroom initially thought she thought she was going to be lightheaded but felt better. Would rather go home Discharge Plan Departure Patient Disposition: Home Clinical Impression: Dehydration Cellulitis Qualifiers: Site of cellulitis: extremity Site of cellulitis of extremity: lower extremity Laterality: right Qualified Code(s): L03.115 - Cellulitis of right lower limb Discharge Date/Time: 10/24/18 16:23 Interventions: ED Discharge Assessment Last Done: 10/24/18 16:22 Instructions: Cellulitis, DI for Dehydration -- Adult Activity Restrictions/Additional Instructions: *You have been diagnosed with dehydration and cellulitis *What to do: Monitor blood pressure. Monitor fluid intake as well. *Continue to take medications as directed Levaquin 750 mg once daily for at least 7 days unless otherwise instructed by her oncology *Follow up with your primary care provider in 2-3 days *Return to ER if you should have dizziness lightheadedness persistently low blood pressure fever chills worsening redness of leg. or any new, worsening or concerning symptoms Prescriptions: No Action metoprolol tartrate 25 MG tablet 25 mg PO TID Qty: 0 RF: 0 hydrocodone-acetaminophen [Vicodin] 5 MG/300 MG tablet 1 tab PO Q4HP PRNQty: 60 RF: 0 capecitabine 500 MG tablet 1,500 mg PO BID Qty: 84 RF: 2 anastrozole 1 mg tablet 1 tab PO DAILY RF: 0 potassium chloride 10 mEq capsule, extended release 1 cap PO DAILY RF: 0 trazodone 50 mg tablet 1 tab PO BEDTIME PRN (Reason: Sleep) RF: 0 levothyroxine 88 mcg tablet 1 tab PO DAILY RF: 0 losartan 25 mg tablet 12.5 mg PO DAILY RF: 0 rivaroxaban [Xarelto] 20 mg tablet 1 tab PO DAILY RF: 0 furosemide [Lasix] 20 MG tablet 40 mg PO QDAY RF: 0 Disabled Parking Permit 1 ea miscellaneous DIRECTED RF: 0 codeine-guaifenesin [Virtussin AC] 10-100 mg/5 mL liquid 10 ml PO Q4-6H PRN (Reason: cough) Qty: 118 RF: 0 levofloxacin [Levaquin] 750 mg tablet 750 mg PO DAILY Qty: 7 RF: 0 Referrals: Chace Rebolledo MD [Primary Care Provider] -
[2018-10-24 13:30] VITALS: BP 99/50; PULSE 71; RESP 25; O2SAT 97
[2018-10-24] MEDS: SODIUM CHLORIDE 0.9% 1,000 ML 125 ML IV (13:44)
[2018-10-24 13:47] LABS: Add Manual Diff / Slide Review NO; Basophils Absolute Auto 200 /uL (0-100); Basophils Percent Auto 1.3 % (0-2); Eosinophils Absolute Auto 0 /uL (0-450); Hematocrit 31.2 % (36-46); Hemoglobin 10.6 g/dL (12.0-16.0); Lymphocytes Absolute Auto 700 /uL (1100-4500); Lymphocytes Percent Auto 4.1 % (25-40); Mean Corpuscular Hemoglobin 32.2 PG (26-34); Mean Corpuscular Volume 94.7 fL (80-100); Monocytes Absolute Auto 1600 /uL (0-900); Monocytes Percent Auto 9.8 % (3-14); Neutrophils Absolute Auto 13900 /uL (1500-7000); Neutrophils Percent Auto 84.8 % (50-75); Platelet Count 111 X10^3/uL (150-400); Red Cell Distribution Width 20.5 % (11.6-14.8); White Blood Cell Count 16.4 X10^3/uL (4.5-11.0)
[2018-10-24 13:51] LABS: INR 2.8 (0.9-1.3); Prothrombin Time 32.6 SECONDS (10.1-12.7)
[2018-10-24 13:53] LABS: PTT Partial Thromboplastin Tim 43 SECONDS (26.4-36.2)
[2018-10-24 13:56] LABS: Lactate (Lactic Acid) 1.7 mmol/L (0.7-2.1)
[2018-10-24 13:59] LABS: Alanine Aminotransferase 14 IU/L (9-52); Albumin 3.3 g/dL (3.5-5.0); Albumin Globulin Ratio 1.1 (1.0-2.8); Alkaline Phosphatase 143 U/L (38-126); Aspartate Aminotransferase 38 IU/L (14-36); Bilirubin Total 2.6 mg/dL (0.2-1.3); Blood Urea Nitrogen 17 mg/dL (7-17); Calcium 8.8 mg/dL (8.4-10.2); Carbon Dioxide 29 mmol/L (22-32); Chloride 97 mmol/L (98-107); Estimated Glomerular Filt Rate 53.9 mL/min (>60); Glucose 106 mg/dL (80-110); HEMOLYSIS < 15 (0-50); Potassium 3.8 mmol/L (3.4-5.1); Sodium 136 mmol/L (137-145); Total Protein 6.3 g/dL (6.3-8.2)
[2018-10-24 14:26] LABS: Anisocytosis 1+
[2018-10-24 14:29] LABS: Procalcitonin < 0.05 ng/mL (<0.5)
--- NOTE | 2018-10-24 15:28 | PC.NURSE ---
Patient ambulatory to BR with standby assistance only. Steady gait, denies lightheadedness or SOB with ambulation. Urine specimen obtained. BP 111/44 after ambulation and states she feels much better. NS bolus started 500mL x1. Dr. Birch updated on pt status.
--- NOTE | 2018-10-24 15:52 | PC.NURSE ---
Patient with swelling, redness to right casey. CMS intact distally
[2018-10-24 15:57] VITALS: BP 111/44; PULSE 68; RESP 16; O2SAT 98
--- NOTE | 2018-10-24 16:00 | PC.NURSE ---
500mL bolus NS given per MD orders. IV HL
[2018-10-24 16:22] VITALS: BP 90/35; PULSE 71; RESP 20; TEMP 37.1; O2SAT 96
--- NOTE | 2018-10-24 17:49 | PC.NURSE ---
Patient Portacath reaccessed per sterile technique with 20G 0.75 inch Yanez needle. Positive blood return noted and flushed with 10mL of NS. Portacath Heparin Locked with Heparin flush 100Units per protocol. Portacath then discontinued and sterile bandage placed over site. Patient alert and oriented and ambulatory from ED. Ride home with son.
== END 2018-10-24 16:23 | disposition home or self-care (01) ==
PROVIDERS: Emergency Provider Emergency Medicine; Family Provider Internal Medicine; PCP Internal Medicine
DX: E86.0 Dehydration (principal); L03.115 Cellulitis of right lower limb; C50.919 Malignant neoplasm of unspecified site of unspecified female breast; Z79.01 Long term (current) use of anticoagulants; Z92.21 Personal history of antineoplastic chemotherapy
CPT/HCPCS: 36591; 71045; 80053; 81003; 83605; 84145; 85025; 85610; 85730; 87040; 96360; 96361; 99283; 99284

== ENCOUNTER → 2019-01-19 14:00 | Oncology outpatient (ONC) | payer MEDICARE, SELFPAY ==
[2018-03-30 10:37] LABS: Add Manual Diff / Slide Review NO; Basophils Percent Auto 0.7 % (0-2); Eosinophils Percent Auto 1.6 % (2-4); Hematocrit 37.3 % (36-46); Hemoglobin 12.4 g/dL (12.0-16.0); Mean Corpuscular HGB Conc 33.3 % (30-36); Mean Corpuscular Hemoglobin 30.5 PG (26-34); Mean Corpuscular Volume 91.5 fL (80-100); Monocytes Percent Auto 21.6 % (3-14); Neutrophils Absolute Auto 2700 /uL (3000-5900); Neutrophils Percent Auto 58.1 % (50-75); Platelet Count 146 X10^3/uL (150-400); Red Blood Cell Count 4.08 X10^6/uL (4.0-5.2); Red Cell Distribution Width 17.2 % (11.6-14.8); White Blood Cell Count 4.6 X10^3/uL (4.5-11.0)
[2018-03-30 10:42] LABS: INR 1.3 (0.9-1.3); Prothrombin Time 14.3 SECONDS (10.1-12.7)
[2018-03-30 10:45] LABS: PTT Partial Thromboplastin Tim 36 SECONDS (26.4-36.2)
[2018-03-30 11:07] LABS: Erythrocyte Sedimentation Rate 31 MM/HR (0-20)
[2018-03-30 11:26] LABS: Alanine Aminotransferase 40 IU/L (9-52); Albumin 3.9 g/dL (3.5-5.0); Albumin Globulin Ratio 1.1 (1.0-2.8); Alkaline Phosphatase 117 U/L (38-126); Aspartate Aminotransferase 58 IU/L (14-36); BUN Creatinine Ratio 14.3 (6-22); Bilirubin Total 2.9 mg/dL (0.2-1.3); Bilirubin Unconjugated 2.3 mg/dL (0.0-1.1); Blood Urea Nitrogen 10 mg/dL (7-17); C-Reactive Protein Quant < 0.5 mg/dL (<1.0); Calcium 9.5 mg/dL (8.4-10.2); Carbon Dioxide 29 mmol/L (22-32); Chloride 101 mmol/L (98-107); Estimated Glomerular Filt Rate > 60.0 mL/min (>60); Globulin 3.5 g/dL (1.7-4.1); Glucose 109 mg/dL (80-110); HEMOLYSIS < 15 (0-50); Lactate Dehydrogenase 623 U/L (313-618); Magnesium 1.8 mg/dL (1.6-2.3); Potassium 3.9 mmol/L (3.4-5.1); Sodium 141 mmol/L (137-145); Total Protein 7.4 g/dL (6.3-8.2)
[2018-04-01 17:44] LABS: Haptoglobin 116 mg/dL (43-212)
[2018-04-08 10:51] LABS: Add Manual Diff / Slide Review NO; Basophils Percent Auto 0.6 % (0-2); Eosinophils Percent Auto 1.8 % (2-4); Hemoglobin 12.3 g/dL (12.0-16.0); Mean Corpuscular Hemoglobin 30.5 PG (26-34); Mean Corpuscular Volume 89.7 fL (80-100); Monocytes Percent Auto 20.3 % (3-14); Neutrophils Absolute Auto 2500 /uL (3000-5900); Neutrophils Percent Auto 61.3 % (50-75); Platelet Count 159 X10^3/uL (150-400); Red Blood Cell Count 4.01 X10^6/uL (4.0-5.2); Reticulocyte Count, Percent 2.3 % (1.06-2.63); White Blood Cell Count 4.2 X10^3/uL (4.5-11.0)
[2018-04-08 10:53] LABS: INR 1.6 (0.9-1.3); Prothrombin Time 19.1 SECONDS (10.1-12.7)
[2018-04-08 10:54] LABS: Fibrinogen 315 mg/dL (211-428)
[2018-04-08 10:56] LABS: PTT Partial Thromboplastin Tim 39 SECONDS (26.4-36.2)
[2018-04-08 10:57] LABS: Alanine Aminotransferase 31 IU/L (9-52); Albumin 3.9 g/dL (3.5-5.0); Albumin Globulin Ratio 1.2 (1.0-2.8); Alkaline Phosphatase 108 U/L (38-126); Aspartate Aminotransferase 48 IU/L (14-36); BUN Creatinine Ratio 18.6 (6-22); Bilirubin Total 2.5 mg/dL (0.2-1.3); Blood Urea Nitrogen 13 mg/dL (7-17); Calcium 9.6 mg/dL (8.4-10.2); Carbon Dioxide 26 mmol/L (22-32); Chloride 103 mmol/L (98-107); Estimated Glomerular Filt Rate > 60.0 mL/min (>60); Globulin 3.3 g/dL (1.7-4.1); Glucose 92 mg/dL (80-110); HEMOLYSIS 15 (0-50); Lactate Dehydrogenase 632 U/L (313-618); Potassium 4.3 mmol/L (3.4-5.1); Sodium 140 mmol/L (137-145); Total Protein 7.2 g/dL (6.3-8.2)
[2018-04-10 14:46] LABS: Haptoglobin 108 mg/dL (43-212)
[2018-06-07 13:22] LABS: Hematocrit 36.4 % (36-46); Hemoglobin 12.7 g/dL (12.0-16.0); Mean Corpuscular HGB Conc 34.8 % (30-36); Mean Corpuscular Hemoglobin 30.5 PG (26-34); Mean Corpuscular Volume 87.6 fL (80-100); Platelet Count 140 X10^3/uL (150-400); Red Blood Cell Count 4.16 X10^6/uL (4.0-5.2); Red Cell Distribution Width 15.5 % (11.6-14.8)
[2018-06-07 13:29] LABS: Add Manual Diff / Slide Review YES
[2018-06-07 13:33] LABS: Alanine Aminotransferase 44 IU/L (9-52); Albumin Globulin Ratio 1.1 (1.0-2.8); Alkaline Phosphatase 121 U/L (38-126); Aspartate Aminotransferase 62 IU/L (14-36); BUN Creatinine Ratio 21.4 (6-22); Bilirubin Total 3.8 mg/dL (0.2-1.3); Bilirubin Unconjugated 3.4 mg/dL (0.0-1.1); Blood Urea Nitrogen 15 mg/dL (7-17); Calcium 9.4 mg/dL (8.4-10.2); Carbon Dioxide 27 mmol/L (22-32); Chloride 101 mmol/L (98-107); Estimated Glomerular Filt Rate > 60.0 mL/min (>60); Globulin 3.5 g/dL (1.7-4.1); Glucose 91 mg/dL (80-110); HEMOLYSIS < 15 (0-50); Potassium 3.5 mmol/L (3.4-5.1); Sodium 137 mmol/L (137-145); Total Protein 7.5 g/dL (6.3-8.2)
[2018-06-07 13:45] LABS: Neutrophils Absolute Manual 2750 /uL (3000-5900); Total Cells Counted 100
[2018-06-07 13:46] LABS: Anisocytosis 1+; Ovalocytes 1+; Poikilocytosis 1+
[2018-06-10 16:24] LABS: CA 15-3 266 U/mL (< 32)
[2018-09-23 17:51] LABS: BUN Creatinine Ratio 25.7 (6-22); Blood Urea Nitrogen 18 mg/dL (7-17); Calcium 9.4 mg/dL (8.4-10.2); Carbon Dioxide 31 mmol/L (22-32); Chloride 99 mmol/L (98-107); Estimated Glomerular Filt Rate > 60.0 mL/min (>60); Glucose 92 mg/dL (80-110); HEMOLYSIS < 15 (0-50); Potassium 3.7 mmol/L (3.4-5.1); Sodium 138 mmol/L (137-145)
[2018-09-23 17:59] LABS: B Type Natriuretic Peptide 374 (<100)
[2018-10-07 16:24] LABS: Add Manual Diff / Slide Review NO; Basophils Absolute Auto 0 /uL (0-100); Eosinophils Absolute Auto 0 /uL (0-450); Eosinophils Percent Auto 0.2 % (2-4); Hematocrit 27.8 % (36-46); Hemoglobin 9.9 g/dL (12.0-16.0); Lymphocytes Absolute Auto 300 /uL (1100-4500); Lymphocytes Percent Auto 66.5 % (25-40); Mean Corpuscular HGB Conc 35.7 % (30-36); Mean Corpuscular Hemoglobin 32.2 PG (26-34); Mean Corpuscular Volume 90.3 fL (80-100); Monocytes Absolute Auto 100 /uL (0-900); Monocytes Percent Auto 16.9 % (3-14); Neutrophils Absolute Auto 100 /uL (1500-7000); Neutrophils Percent Auto 13.4 % (50-75); Platelet Count 163 X10^3/uL (150-400); Red Blood Cell Count 3.08 X10^6/uL (4.0-5.2); Red Cell Distribution Width 17.3 % (11.6-14.8)
[2018-10-07 16:28] LABS: White Blood Cell Count 0.5 X10^3/uL (4.5-11.0)
[2018-10-07 16:31] LABS: Alanine Aminotransferase 22 IU/L (9-52); Albumin 3.6 g/dL (3.5-5.0); Albumin Globulin Ratio 1.3 (1.0-2.8); Alkaline Phosphatase 85 U/L (38-126); Aspartate Aminotransferase 59 IU/L (14-36); Bilirubin Unconjugated 2.6 mg/dL (0.0-1.1); Globulin 2.8 g/dL (1.7-4.1); HEMOLYSIS < 15 (0-50); Lactate Dehydrogenase 749 U/L (313-618); Total Protein 6.4 g/dL (6.3-8.2)
[2018-10-07 16:33] LABS: BUN Creatinine Ratio 16.9 (6-22); Blood Urea Nitrogen 22 mg/dL (7-17); Calcium 9.2 mg/dL (8.4-10.2); Carbon Dioxide 32 mmol/L (22-32); Chloride 92 mmol/L (98-107); Estimated Glomerular Filt Rate 39.8 mL/min (>60); Glucose 131 mg/dL (80-110); HEMOLYSIS < 15 (0-50); Potassium 3.9 mmol/L (3.4-5.1); Sodium 132 mmol/L (137-145)
[2018-10-07 16:40] LABS: B Type Natriuretic Peptide 461 (<100)
--- NOTE | 2018-10-07 16:47 | PC.NURSE ---
Miya reported a CV of WBC 0.5, Neutrophils are 100. This nurse contacted [facility] and spoke directly with Dr. Chiquis Arceo reporting these results as well as elevated BNP, Crea and Bili. Dr. Arceo stated that they will contact the patient.
[2018-10-07 17:02] LABS: Carcinoembryonic Antigen 53.6 ng/mL (0.1-3.0)
--- NOTE | 2018-10-07 17:05 | PC.NURSE ---
Fax numbers given to lab to send results of labs to Dr. Arceo at [facility] under [phone] Santos at [facility] under [phone].
[2018-10-12 10:43] LABS: CA 15-3 337 U/mL (< 32)
[2018-10-18 14:07] LABS: Hematocrit 32.6 % (36-46); Hemoglobin 10.9 g/dL (12.0-16.0); Mean Corpuscular HGB Conc 33.6 % (30-36); Mean Corpuscular Hemoglobin 31.3 PG (26-34); Mean Corpuscular Volume 93.2 fL (80-100); Platelet Count 135 X10^3/uL (150-400); Red Blood Cell Count 3.49 X10^6/uL (4.0-5.2); Red Cell Distribution Width 19.2 % (11.6-14.8); White Blood Cell Count 28.4 X10^3/uL (4.5-11.0)
[2018-10-18 14:10] LABS: INR 2.5 (0.9-1.3); Prothrombin Time 28.8 SECONDS (10.1-12.7)
[2018-10-18 14:12] LABS: Add Manual Diff / Slide Review YES
[2018-10-18 14:21] LABS: Alanine Aminotransferase 24 IU/L (9-52); Albumin 3.7 g/dL (3.5-5.0); Albumin Globulin Ratio 1.2 (1.0-2.8); Alkaline Phosphatase 168 U/L (38-126); Aspartate Aminotransferase 47 IU/L (14-36); BUN Creatinine Ratio 12.3 (6-22); Bilirubin Total 2.7 mg/dL (0.2-1.3); Blood Urea Nitrogen 16 mg/dL (7-17); Calcium 8.9 mg/dL (8.4-10.2); Carbon Dioxide 30 mmol/L (22-32); Chloride 98 mmol/L (98-107); Estimated Glomerular Filt Rate 39.8 mL/min (>60); Glucose 110 mg/dL (80-110); HEMOLYSIS < 15 (0-50); Potassium 3.8 mmol/L (3.4-5.1); Sodium 138 mmol/L (137-145); Total Protein 6.7 g/dL (6.3-8.2)
--- NOTE | 2018-10-18 14:53 | PC.NURSE ---
CBC/CMP results faxed to [facility] at [phone].
[2018-10-18 15:00] LABS: PTT Partial Thromboplastin Tim 152 SECONDS (26.4-36.2)
[2018-10-18 15:06] LABS: Neutrophils Absolute Manual 23288 /uL (3000-5900); Total Cells Counted 100
[2018-10-18 15:07] LABS: Anisocytosis 1+; Polychromasia 1+
--- NOTE | 2018-10-18 15:14 | PC.NURSE ---
INR/PT/PTT results faxed to [facility] [phone]
[2018-11-15 15:38] LABS: Add Manual Diff / Slide Review NO; Basophils Absolute Auto 0 /uL (0-100); Basophils Percent Auto 1.5 % (0-2); Eosinophils Absolute Auto 0 /uL (0-450); Eosinophils Percent Auto 0.6 % (2-4); Hematocrit 29.8 % (36-46); Hemoglobin 10.5 g/dL (12.0-16.0); Lymphocytes Absolute Auto 500 /uL (1100-4500); Lymphocytes Percent Auto 26.1 % (25-40); Mean Corpuscular HGB Conc 35.4 % (30-36); Mean Corpuscular Hemoglobin 33.3 PG (26-34); Mean Corpuscular Volume 94.1 fL (80-100); Monocytes Absolute Auto 200 /uL (0-900); Monocytes Percent Auto 11.4 % (3-14); Neutrophils Absolute Auto 1300 /uL (1500-7000); Neutrophils Percent Auto 60.4 % (50-75); Platelet Count 139 X10^3/uL (150-400); Red Blood Cell Count 3.17 X10^6/uL (4.0-5.2); Red Cell Distribution Width 18.3 % (11.6-14.8); White Blood Cell Count 2.1 X10^3/uL (4.5-11.0)
[2018-11-15 15:54] LABS: B Type Natriuretic Peptide 223 (<100)
[2018-11-15 16:04] LABS: BUN Creatinine Ratio 18.6 (6-22); Blood Urea Nitrogen 13 mg/dL (7-17); Calcium 9.3 mg/dL (8.4-10.2); Carbon Dioxide 31 mmol/L (22-32); Chloride 96 mmol/L (98-107); Estimated Glomerular Filt Rate > 60.0 mL/min (>60); Glucose 102 mg/dL (80-110); HEMOLYSIS < 15 (0-50); Potassium 3.5 mmol/L (3.4-5.1); Sodium 134 mmol/L (137-145)
[2018-11-15 16:07] LABS: Alanine Aminotransferase 46 IU/L (9-52); Albumin 3.6 g/dL (3.5-5.0); Albumin Globulin Ratio 1.2 (1.0-2.8); Alkaline Phosphatase 114 U/L (38-126); Aspartate Aminotransferase 88 IU/L (14-36); Bilirubin Total 2.8 mg/dL (0.2-1.3); Bilirubin Unconjugated 2.5 mg/dL (0.0-1.1); Globulin 2.9 g/dL (1.7-4.1); HEMOLYSIS < 15 (0-50); Lactate Dehydrogenase 648 U/L (313-618); Total Protein 6.5 g/dL (6.3-8.2)
[2018-12-02 14:45] LABS: Add Manual Diff / Slide Review NO; Basophils Absolute Auto 100 /uL (0-100); Basophils Percent Auto 1.1 % (0-2); Eosinophils Absolute Auto 0 /uL (0-450); Eosinophils Percent Auto 0.7 % (2-4); Hematocrit 31.9 % (36-46); Hemoglobin 10.8 g/dL (12.0-16.0); Lymphocytes Absolute Auto 700 /uL (1100-4500); Lymphocytes Percent Auto 15.4 % (25-40); Mean Corpuscular Hemoglobin 32.1 PG (26-34); Mean Corpuscular Volume 94.5 fL (80-100); Monocytes Absolute Auto 1000 /uL (0-900); Monocytes Percent Auto 20.2 % (3-14); Neutrophils Absolute Auto 3000 /uL (1500-7000); Neutrophils Percent Auto 62.6 % (50-75); Platelet Count 129 X10^3/uL (150-400); Red Blood Cell Count 3.38 X10^6/uL (4.0-5.2); Red Cell Distribution Width 17.7 % (11.6-14.8); White Blood Cell Count 4.8 X10^3/uL (4.5-11.0)
[2018-12-02 14:56] LABS: Alanine Aminotransferase 25 IU/L (9-52); Albumin 3.6 g/dL (3.5-5.0); Albumin Globulin Ratio 1.2 (1.0-2.8); Alkaline Phosphatase 119 U/L (38-126); Aspartate Aminotransferase 63 IU/L (14-36); BUN Creatinine Ratio 16.3 (6-22); Bilirubin Total 2.7 mg/dL (0.2-1.3); Bilirubin Unconjugated 2.4 mg/dL (0.0-1.1); Blood Urea Nitrogen 13 mg/dL (7-17); Carbon Dioxide 32 mmol/L (22-32); Chloride 95 mmol/L (98-107); Estimated Glomerular Filt Rate > 60.0 mL/min (>60); Glucose 104 mg/dL (80-110); HEMOLYSIS 15 (0-50); Lactate Dehydrogenase 581 U/L (313-618); Magnesium 1.6 mg/dL (1.6-2.3); Phosphorous 3.1 mg/dL (2.8-4.1); Potassium 3.5 mmol/L (3.4-5.1); Sodium 137 mmol/L (137-145); Total Protein 6.6 g/dL (6.3-8.2)
[2019-01-19 14:45] LABS: Add Manual Diff / Slide Review NO; Basophils Absolute Auto 100 /uL (0-100); Basophils Percent Auto 1.1 % (0-2); Eosinophils Absolute Auto 100 /uL (0-450); Eosinophils Percent Auto 1.5 % (2-4); Hematocrit 35.7 % (36-46); Lymphocytes Absolute Auto 700 /uL (1100-4500); Lymphocytes Percent Auto 15.2 % (25-40); Mean Corpuscular HGB Conc 33.8 % (30-36); Mean Corpuscular Hemoglobin 31.7 PG (26-34); Monocytes Absolute Auto 900 /uL (0-900); Monocytes Percent Auto 18.7 % (3-14); Neutrophils Absolute Auto 3000 /uL (1500-7000); Neutrophils Percent Auto 63.5 % (50-75); Platelet Count 191 X10^3/uL (150-400); Red Blood Cell Count 3.79 X10^6/uL (4.0-5.2); Red Cell Distribution Width 15.1 % (11.6-14.8); White Blood Cell Count 4.8 X10^3/uL (4.5-11.0)
[2019-01-19 14:56] LABS: INR 1.4 (0.9-1.3); Prothrombin Time 16.5 SECONDS (10.1-12.7)
[2019-01-19 14:59] LABS: PTT Partial Thromboplastin Tim 49 SECONDS (26.4-36.2)
[2019-01-19 15:03] LABS: Erythrocyte Sedimentation Rate 37 MM/HR (0-20)
[2019-01-19 15:04] LABS: Alanine Aminotransferase 28 IU/L (9-52); Albumin 3.4 g/dL (3.5-5.0); Albumin Globulin Ratio 1.1 (1.0-2.8); Alkaline Phosphatase 170 U/L (38-126); Aspartate Aminotransferase 60 IU/L (14-36); BUN Creatinine Ratio 15.6 (6-22); Bilirubin Total 2.3 mg/dL (0.2-1.3); Blood Urea Nitrogen 14 mg/dL (7-17); C-Reactive Protein Quant 0.7 mg/dL (<1.0); Carbon Dioxide 27 mmol/L (22-32); Chloride 99 mmol/L (98-107); Estimated Glomerular Filt Rate > 60.0 mL/min (>60); Globulin 3.1 g/dL (1.7-4.1); Glucose 111 mg/dL (80-110); HEMOLYSIS < 15 (0-50); Lactate Dehydrogenase 599 U/L (313-618); Magnesium 1.7 mg/dL (1.6-2.3); Potassium 3.9 mmol/L (3.4-5.1); Sodium 136 mmol/L (137-145); Total Protein 6.5 g/dL (6.3-8.2)
[2019-01-21 14:53] LABS: Haptoglobin 132 mg/dL (43-212)
== END ==
PROVIDERS: Family Provider Internal Medicine; PCP Internal Medicine; Referring Provider Internal Medicine Advanced Heart Failure and Transplant Cardiology; Visit Provider Internal Medicine Medical Oncology
DX: C50.919 Malignant neoplasm of unspecified site of unspecified female breast (principal); I50.30 Unspecified diastolic (congestive) heart failure
CPT/HCPCS: 36415; 36591; 36592; 80048; 80053; 80069; 80076; 82378; 83010; 83615; 83735; 83880; 85025; 85045; 85384; 85610; 85651; 85730; 86140; 86300; 86880